=== PATIENT | female | born 1950 | race Caucasian/White ===

== ENCOUNTER → 2016-10-20 | Outpatient (CLI) | payer MEDICARE, OTHER | END | disposition home or self-care (01) | LOC: GMAL 14:28 | PROVIDERS: ATTEND Family Medicine | DX: D51.3 Other dietary vitamin B12 deficiency anemia (principal); R53.82 Chronic fatigue, unspecified; E55.9 Vitamin D deficiency, unspecified ==

== ENCOUNTER → 2017-02-02 | Outpatient (CLI) | payer MEDICARE, OTHER ==
--- NOTE | 2017-02-03 09:25 | US ---
EXAM DESCRIPTION: Venous,Lower Extremity RT CLINICAL HISTORY: DVT aching and stiffness in the right knee and leg area with inability to bend the knee with tenderness and warmth to touch. COMPARISON: None Available. TECHNIQUE: Left lower extremity venous duplex. Pyle scale, color Doppler, and spectral pulse Doppler evaluation FINDINGS: There is no DVT identified. No filling defects are noted. The examination was accomplished from the groin at the common femoral vein to the lower calf at the level of the posterior tibial and peroneal veins. There is normal color flow observed with good flow augmentation. All deep veins compress normally. IMPRESSION: Negative right lower extremity DVT sonography Electronically signed by: Sukh Mckoy MD 02/03/2017 9:24 AM CDT
== END | disposition home or self-care (01) ==
LOC: US 07:48
PROVIDERS: ATTEND Nurse Practitioner Family
DX: M79.661 Pain in right lower leg (principal)

== ENCOUNTER → 2017-02-09 | Outpatient (CLI) | payer MEDICARE, OTHER ==
--- NOTE | 2017-02-10 10:03 | MAM ---
History: Well woman exam. Date of exam: 02/09/2017 Services provided: Bilateral full field digital screening mammography. CAD, the images were reviewed with R2 computer aided detection. FINDINGS: Glandular tissue is near completely fatty involuted. Comparison with 2014 study. No dominant mass, architectural distortion or clustered microcalcification. IMPRESSION: Benign exam Recommendation: Routine annual study. BIRAD CATEGORY: 2 BENIGN Electronically signed by: Coleen Moran MD 02/10/2017 10:03 AM CDT Workstation: [id number]
== END | disposition home or self-care (01) ==
LOC: MAMMO 15:34
PROVIDERS: ATTEND Family Medicine
DX: Z12.31 Encounter for screening mammogram for malignant neoplasm of breast (principal)

== ENCOUNTER → 2017-05-14 | Outpatient (CLI) | payer MEDICARE, OTHER ==
--- NOTE | 2017-05-17 13:17 | MRI ---
MRI left knee without contrast INDICATION: Chronic knee pain chondrosis joint effusion TECHNIQUE: Noncontrast MR imaging left knee standard protocol FINDINGS: There is advanced diffuse grade 4 chondrosis from the patellar apex throughout the lateral patellar facet with multifocal mild subchondral edema and cystic change. Minimal chondrosis of the trochlea. Large joint effusion. Minimal extensor tendinosis. Mild interstitial mucoid degeneration/ganglion formation of the ACL. Mild degenerative signal within the PCL. There is diffuse grade 4 chondrosis throughout the lateral tibiofemoral compartment with multifocal subchondral edema. There is also a region of grade 3-4 chondrosis in the intercondylar aspect medial femoral condyle. There is diffuse mild degenerative change in the medial meniscus. More extensive macerated tear lateral meniscal body extending into the anterior horn with free edge irregularity and truncation partial lateral extrusion. Collateral ligaments are intact. Developing osteoarthrosis of the knee with tricompartmental osteophytes. Small intraosseous ganglia midline tibial plateau. IMPRESSION: Advanced chondrosis throughout the lateral tibiofemoral and lateral patellofemoral compartments with lower grade chondrosis in the remainder of the knee with developing tricompartmental osteoarthrosis Diffuse degenerative macerated lateral meniscal tear most severe in the body and anterior horn with partial lateral extrusion Mild degenerative change medial meniscus Large joint effusion Interstitial mucoid degeneration/ganglion formation of the ACL indicating previous interstitial partial tear. Electronically signed by: Wade Lamas MD 05/17/2017 1:16 PM CDT
== END ==
LOC: MRI 11:49
PROVIDERS: ATTEND Family Medicine
DX: S83.282A Other tear of lateral meniscus, current injury, left knee, initial encounter (principal); M17.12 Unilateral primary osteoarthritis, left knee; M25.462 Effusion, left knee

== ENCOUNTER → 2017-09-22 | Outpatient (CLI) | payer MEDICARE, OTHER | LOC: YCHH 09:30 | PROVIDERS: ATTEND Family Medicine | DX: I10 Essential (primary) hypertension (principal) ==

== ENCOUNTER → 2017-10-27 | Outpatient (CLI) | payer MEDICARE, OTHER | LOC: GMAL 10:34 | PROVIDERS: ATTEND Family Medicine | DX: D51.3 Other dietary vitamin B12 deficiency anemia (principal); R53.82 Chronic fatigue, unspecified; E55.9 Vitamin D deficiency, unspecified ==

== ENCOUNTER → 2018-06-24 | Outpatient (CLI) | payer MEDICARE, OTHER ==
--- NOTE | 2018-06-25 16:28 | MAM ---
EXAM DESCRIPTION: 3D Screening BILATERAL : Digital Mammography. CLINICAL HISTORY: 67 years Female SCREEN no complaints. No personal or family history of breast cancer. Childbirth. Postmenopausal. No HRT. Lifetime risk of developing breast cancer (Tyrer-Cuzick model)(%): 6.7. COMPARISON: 2-D digital screening bilateral mammography 02/09/2017.. TECHNIQUE: Bilateral CC and MLO projection full-field images, digital tomosynthesis mammographic technique Bilateral digital 2-D full-field MLO images. CAD not utilized. FINDINGS: The breast parenchymal density pattern is: Scattered areas of fibroglandular density. No skin thickening or nipple retraction. Bilateral solitary microcalcifications diffusely distributed. No new focal, stellate mass or density, focal asymmetry , and no suspicious microcalcifications bilaterally. Stable mammograms compared to prior study. Taking into account, differences in mammographic technique. IMPRESSION: Benign exam. BIRAD CATEGORY: 2 BENIGN FINDINGS. RECOMMENDATIONS: FOLLOW UP: Routine digital bilateral screening, one year interval from June 2018. Written communication explaining the IMPRESSION and follow-up, will be mailed to the patient and referring health care provider. According to the [employer], yearly mammograms are recommended starting at age 40 and continuing as long as a woman is in good health. Any breast change noted on a breast self-exam should be reported promptly to the patient's healthcare provider. Breast MRI is recommended for women with an approximately 20-25% or greater lifetime risk of breast cancer, including women with a strong family history of breast or ovarian cancer and women who have been treated for Hodgkin's disease. A negative mammographic report should not delay tissue diagnosis in patients with significant clinical history or physical findings. Extremely dense breast tissue limits the sensitivity of digital mammography. Electronically signed by: William Gillis MD 06/25/2018 4:26 PM CDT
== END ==
LOC: MAMMO 13:00
PROVIDERS: ATTEND Family Medicine
DX: Z12.31 Encounter for screening mammogram for malignant neoplasm of breast (principal)

== ENCOUNTER → 2019-11-06 | Outpatient (CLI) | payer MEDICARE, OTHER | DX: R05 Cough (principal) ==

== ENCOUNTER → 2020-06-12 | Outpatient (CLI) | payer MEDICARE, OTHER ==
--- NOTE | 2020-06-13 13:52 | US ---
EXAM DESCRIPTION: Liver: ULTRASOUND. CLINICAL HISTORY: ABNORMAL RESULTS OF LIVER FUNCTION STUDIES COMPARISON: None. TECHNIQUE: Transabdominal scannin-dimensional and Doppler modes. FINDINGS: Gallbladder: Normal size with multiple echogenic stones and acoustic shadowing. Largest stones measure 1.6 and 0.9 cm in diameter. No fluid around the gallbladder. No wall thickening. 2.7 mm. Non-tender with transducer pressure. Common bile duct: caliber 3.9 mm within normal limits. Liver: Heterogeneously increased echogenicity; contour liver capsule smooth where seen. No fluid around the liver. Intrahepatic biliary ducts normal caliber. Doppler hepatopedal flow portal vein. 7. 7 Mm normal caliber Long axis right lobe 16.4 cm. Pancreas: normal size and echogenicity. Duct not seen. Right kidney: long axis measures 8.3 cm. Volume 93.9 ml. Cortical echogenicity and normal. Cortical thickness and minimally decreased. No echogenic stones; no hydronephrosis. Aorta proximal: 1.8 cm diameter. IMPRESSION: 1. Cholelithiasis of the gallbladder with no wall thickening fluid or tenderness. Common bile duct normal caliber. 2. Steatosis of the liver and borderline enlarged. Physiologic ducts and vascularity. Smooth capsule with no ascites. Also fatty infiltration of the pancreas. 3. Right kidney with age-related changes. Normal caliber of the abdominal aorta and IVC. Electronically signed by: William Gillis MD 06/13/2020 1:50 PM CDT
== END ==
LOC: US 09:00
PROVIDERS: ATTEND Family Medicine
DX: R94.5 Abnormal results of liver function studies (principal); K76.0 Fatty (change of) liver, not elsewhere classified; K80.20 Calculus of gallbladder without cholecystitis without obstruction; N28.9 Disorder of kidney and ureter, unspecified; K86.89 Other specified diseases of pancreas

== ENCOUNTER → 2020-09-25 | Outpatient (CLI) | payer MEDICARE, OTHER ==
--- NOTE | 2020-09-26 10:21 | NM ---
EXAM DESCRIPTION: Hepatobiliar w/CCK: Nuclear Medicine. CLINICAL HISTORY: ABNORMAL LIVER FUNCTION STUDIES. Cholelithiasis of the gallbladder. COMPARISON: Ultrasound liver May 2020. TECHNIQUE: Patient was given 8.5 mCi of technetium 99 M mebrofenin (Choletec) radiopharmaceutical IV. Anterior gamma camera images were obtained of the right upper quadrant at 5 minute intervals for 1 hour. The patient was then given 1.9 mcg CCK (Kinevac). IV infusion over 30-minute interval. Gallbladder ejection fraction was evaluated by measuring change in radioactivity in the gallbladder, over 30 min interval. FINDINGS: Immediately visualization of the liver after administration of radiopharmaceutical with no abnormal focal areas of increased activity or photopenia. Almost immediate visualization of intrahepatic ducts. Intrahepatic and extrahepatic ducts were well visualized. Normal activity is noted in a structure adjacent to the gallbladder fossa which was initially believed to be the gallbladder. After CCK IV infusion was begun, the gallbladder begins to visualize on the lateral aspect of this larger structure. Minimal activity in this site is seen on the final image of the first phase. When CCK IV infusion began, patient experienced nausea with "mild discomfort". 10 minutes after infusion began, there was no significant emptying of the gallbladder visualized. From 10 to 30 minutes after infusion, no significant activity decrease was noted in the gallbladder, and in fact, gallbladder began distending with radiopharmaceutical after 20 minutes. Significant amount of reflux into the stomach also noted with infusion of CCK. IMPRESSION: 1. No intrahepatic or extrahepatic biliary tract obstruction. 2. Significantly delayed visualization of the gallbladder. Question a redundant common bile duct or common bile duct/common hepatic duct diverticulum. 3. No significant emptying of radiopharmaceutical from the gallbladder after administration of CCK, which could be due to cholelithiasis, partial obstruction of the cystic duct, and chronic cholecystitis. Increasing radiopharmaceutical in the gallbladder from 20 minutes to 30 minutes. Gastric reflux also noted with administration of CCK. Electronically signed by: William Gillis MD 09/26/2020 10:20 AM [facility]
== END ==
LOC: NM 08:47
PROVIDERS: ATTEND Family Medicine
DX: R94.5 Abnormal results of liver function studies (principal); K83.9 Disease of biliary tract, unspecified; K82.9 Disease of gallbladder, unspecified
CPT/HCPCS: 78227; A9537